=== PATIENT | female | born 1935 | race Caucasian/White ===

== ENCOUNTER → 2016-05-16 | Outpatient (CLI) | payer MEDICARE, OTHER ==
[~2016-05-16] MED LIST: ALBUPOW26 XX; ASPI81CH43 PO; MECL-87 PO
== END | disposition home or self-care (01) ==
LOC: LAB 11:15
PROVIDERS: ATTEND Internal Medicine
DX: R42 Dizziness and giddiness (principal)
CPT/HCPCS: 36415; 82565; 84520

== ENCOUNTER → 2016-08-03 | Outpatient (CLI) | payer MEDICARE, OTHER ==
[2016-08-03 13:23] LABS: Urine Bilirubin Negative (Negative); Urine Blood Negative /uL (Negative); Urine Color Yellow (Yellow); Urine Glucose Normal (Normal); Urine Ketone Negative (Negative); Urine Mucus FEW (None Seen); Urine Nitrite Negative (Negative); Urine RBC <1 /hpf (0 - 4); Urine Squamous Epithelial Cell FEW /hpf (<5); Urine Urobilinogen Normal (Negative)
[2016-08-03 13:39] LABS: Basophils # (auto) 0 uL; Basophils % (auto) 0.8 % (0.0-2.0); Eosinophils # (auto) 0.1 uL; Eosinophils % (auto) 3.7 % (0.0-7.0); Hematocrit 38.3 % (36.0-46.0); Hemoglobin 12.5 g/dL (12.2-16.2); Lymphocytes # (auto) 1.1 uL; Lymphocytes % (auto) 32.4 % (10.0-50.0); Mean Corpuscular Hemoglobin 30.6 pg (28.0-32.0); Mean Corpuscular Hgb Conc. 32.7 g/dL (32.0-36.0); Mean Corpuscular Volume 93.7 fL (80.0-100.0); Mean Platelet Volume 8.9 fL (7.4-10.4); Monocytes # (auto) 0.3 uL; Monocytes % (auto) 8.2 % (0.0-12.0); Neutrophils # (auto) 1.9 uL; Neutrophils % (auto) 54.9 % (37.0-80.0); Platelet Count (auto) 147 10^3/uL (140-450); Red Cell Distribution Width 13.6 % (11.6-16.0); White Blood Cell 3.4 10^3/uL (4.4-10.8)
[2016-08-03 14:06] LABS: Albumin 3.7 g/dL (3.4-5.0); BUN/Creatinine Ratio 25.7; Bilirubin, Total 0.4 mg/dL (0.2-1.0); Calcium 9.6 mg/dL (8.5-10.1)
== END | disposition home or self-care (01) ==
LOC: LAB 12:44
PROVIDERS: ATTEND Internal Medicine
DX: Z00.00 Encounter for general adult medical examination without abnormal findings (principal)
CPT/HCPCS: 36415; 80053; 80061; 81001; 82306; 84439; 84443; 85025

== ENCOUNTER 2016-09-15 18:12 | Emergency (ER) | payer MEDICARE, OTHER ==
[~2016-09-15] VITALS: Ht 160 cm; Wt 55.8 kg
[2016-09-15 18:22] VITALS: BP 169/95
[2016-09-15 19:27] LABS: Basophils # (auto) 0 uL; Basophils % (auto) 0.6 % (0.0-2.0); Eosinophils # (auto) 0.2 uL; Eosinophils % (auto) 3.7 % (0.0-7.0); Hematocrit 40.8 % (36.0-46.0); Hemoglobin 13.4 g/dL (12.2-16.2); Lymphocytes # (auto) 1.6 uL; Lymphocytes % (auto) 33.7 % (10.0-50.0); Mean Corpuscular Hemoglobin 31.4 pg (28.0-32.0); Mean Corpuscular Hgb Conc. 32.9 g/dL (32.0-36.0); Mean Corpuscular Volume 95.3 fL (80.0-100.0); Mean Platelet Volume 8.8 fL (7.4-10.4); Monocytes # (auto) 0.4 uL; Monocytes % (auto) 7.5 % (0.0-12.0); Neutrophils # (auto) 2.6 uL; Neutrophils % (auto) 54.5 % (37.0-80.0); Platelet Count (auto) 179 10^3/uL (140-450); Red Cell Distribution Width 13.5 % (11.6-16.0); White Blood Cell 4.7 10^3/uL (4.4-10.8)
[2016-09-15 19:48] LABS: Albumin 4.1 g/dL (3.4-5.0); Alkaline Phosphatase 69 U/L (45-117); Anion Gap 6 (5-15); Aspartate Aminotransferase 19 U/L (15-37); BUN/Creatinine Ratio 26.4; Bilirubin, Total 0.4 mg/dL (0.2-1.0); Blood Urea Nitrogen 19 mg/dL (7-18); Calcium 9.1 mg/dL (8.5-10.1); Carbon Dioxide 28 mmol/L (21-32); Chloride 102 mmol/L (98-107); GFR African American 100 mL/min; GFR Non-African American 82 mL/min; Glucose 90 mg/dL (74-106); Magnesium 2.4 mg/dL (1.6-2.6); Potassium 3.5 mmol/L (3.5-5.1); Sodium 136 mmol/L (136-145); Total Protein 7.6 g/dL (6.4-8.2)
== END 2016-09-15 19:17 | disposition left against medical advice (07) ==
LOC: ER 18:12
DX: R53.1 Weakness (principal); R42 Dizziness and giddiness; Z53.21 Procedure and treatment not carried out due to patient leaving prior to being seen by health care provider
CPT/HCPCS: 36415; 80053; 83735; 84484; 85025; 93005

== ENCOUNTER 2017-04-17 10:06 | Inpatient (IN) | payer MEDICARE, OTHER ==
[~2017-04-17] VITALS: Ht 157.5 cm; Wt 63.9 kg
[2017-04-17 12:32] LABS: Basophils # (auto) 0 uL; Basophils % (auto) 0.6 % (0.0-2.0); Eosinophils # (auto) 0 uL; Eosinophils % (auto) 0.4 % (0.0-7.0); Hematocrit 42.5 % (36.0-46.0); Hemoglobin 14.1 g/dL (12.2-16.2); Lymphocytes # (auto) 0.4 uL; Lymphocytes % (auto) 9.2 % (10.0-50.0); Mean Corpuscular Hemoglobin 31.6 pg (28.0-32.0); Mean Corpuscular Volume 95.5 fL (80.0-100.0); Monocytes # (auto) 0.2 uL; Monocytes % (auto) 3.9 % (0.0-12.0); Neutrophils # (auto) 3.9 uL; Neutrophils % (auto) 85.9 % (37.0-80.0); Platelet Count (auto) 143 10^3/uL (140-450); Red Blood Cells 4.45 10^6/uL (4.0-5.20); Red Cell Distribution Width 14.2 % (11.8-14.3); White Blood Cell 4.5 10^3/uL (4.4-10.8)
[2017-04-17 12:52] LABS: Albumin 3.8 g/dL (3.4-5.0); BUN/Creatinine Ratio 27.8; Calcium 9.5 mg/dL (8.5-10.1); Potassium 4.5 mmol/L (3.5-5.1)
[2017-04-17 12:56] LABS: Bilirubin, Total 0.5 mg/dL (0.2-1.0); Total Protein 7.5 g/dL (6.4-8.2)
[2017-04-17 14:59] LABS: Urine Bacteria NONE SEEN /hpf (None Seen); Urine Blood 1+ /uL (Negative); Urine Mucus FEW (None Seen); Urine Specific Gravity 1.027 (1.001-1.035); Urine WBC 258 /hpf (0 - 5)
[2017-04-17] MEDS ORDERED: ONDANSETRON HCL 4 MG/2 ML VIAL IV ONE (16:30)
[2017-04-17] MEDS ORDERED: MORPHINE SULFATE 4 MG/ML SYR/VIAL IV ONE (16:30)
[2017-04-17] MEDS ORDERED: CIPROFLOXACIN 400MG/200ML 200 ML IV ONE (16:45)
[2017-04-17] MEDS ORDERED: PANTOPRAZOLE 40 MG/10 ML VIAL IV ONE (16:45)
[2017-04-17] MEDS ORDERED: MORPHINE SULFATE 10 MG/ML INJ 1ML SDV IV ONE (16:45)
[2017-04-17] MEDS ORDERED: PIPERACILLIN-TAZOB 2.25GM 50 ML IV ONE (19:15)
[2017-04-17] MEDS ORDERED: MORPHINE SULFATE 10 MG/ML INJ 1ML SDV IV PRN (19:30)
[2017-04-17] MEDS ORDERED: ONDANSETRON HCL 4 MG/2 ML VIAL IV PRN (19:30)
[2017-04-17] MEDS ORDERED: NITROGLYCERIN 0.4 MG SL TAB SL PRN (19:30)
[2017-04-17] MEDS ORDERED: LORazepam 2MG/ML-1ML VIAL IV PRN (19:30)
[2017-04-17] MEDS ORDERED: D5W/SOD CHL 0.45%/KCL 20MEQ 1,000 ML IV ONE (19:30)
[2017-04-17] MEDS ORDERED: cefTRIAXone 1GM/10ml IVPUSH 10 ML IV ONE (19:45)
[2017-04-17 21:35] VITALS: BP 107/69
[2017-04-17] MEDS: metroNIDAZOLE 500MG/100ML 100 ML IV SCH (22:26)
[2017-04-18 05:25] LABS: Basophils # (auto) 0 uL; Basophils % (auto) 0.1 % (0.0-2.0); Eosinophils # (auto) 0 uL; Hemoglobin 11.9 g/dL (12.2-16.2); Lymphocytes # (auto) 0.6 uL; Lymphocytes % (auto) 8.5 % (10.0-50.0); Mean Corpuscular Hemoglobin 32.2 pg (28.0-32.0); Mean Corpuscular Volume 94.6 fL (80.0-100.0); Monocytes # (auto) 0.4 uL; Monocytes % (auto) 5.9 % (0.0-12.0); Neutrophils # (auto) 6.2 uL; Neutrophils % (auto) 85.5 % (37.0-80.0); Nucleated Red Blood Cells % 0.1 %; Platelet Count (auto) 124 10^3/uL (140-450); Red Cell Distribution Width 14.1 % (11.8-14.3); White Blood Cell 7.3 10^3/uL (4.4-10.8)
[2017-04-18 05:38] VITALS: BP 105/67
[2017-04-18 05:46] LABS: INR 1.11 (0.9-1.15); Prothrombin Time 12.1 sec (9.37-12.3)
[2017-04-18 05:56] LABS: BUN/Creatinine Ratio 30.8; Bilirubin, Total 0.6 mg/dL (0.2-1.0); Calcium 8.5 mg/dL (8.5-10.1); Total Protein 6.3 g/dL (6.4-8.2)
[2017-04-18] MEDS: metroNIDAZOLE 500MG/100ML 100 ML IV SCH ×3 (06:49→21:38)
[2017-04-18 07:58] VITALS: BP 115/69
[2017-04-18 08:40] VITALS: BP 115/69
[2017-04-18] MEDS: cefTRIAXone 1GM/10ml IVPUSH 10 ML IV SCH (08:43)
[2017-04-18] MEDS ORDERED: PANTOPRAZOLE 40 MG/10 ML VIAL IV ONE (10:30)
[2017-04-18] MEDS: D5W/SOD CHL 0.45%/KCL 20MEQ 1,000 ML IV SCH ×2 (11:49→21:39)
[2017-04-18 13:00] VITALS: BP 126/75
[2017-04-18 16:31] VITALS: BP 124/76
[2017-04-18 21:46] VITALS: BP 129/71
[2017-04-19 04:57] VITALS: BP 118/70
[2017-04-19] MEDS: metroNIDAZOLE 500MG/100ML 100 ML IV SCH ×3 (05:31→21:49)
[2017-04-19] MEDS: D5W/SOD CHL 0.45%/KCL 20MEQ 1,000 ML IV SCH ×2 (05:32→10:30)
[2017-04-19 05:51] LABS: Basophils # (auto) 0 uL; Basophils % (auto) 0.2 % (0.0-2.0); Eosinophils # (auto) 0.1 uL; Eosinophils % (auto) 2.2 % (0.0-7.0); Hematocrit 34.8 % (36.0-46.0); Hemoglobin 11.9 g/dL (12.2-16.2); Lymphocytes # (auto) 0.9 uL; Lymphocytes % (auto) 14.1 % (10.0-50.0); Mean Corpuscular Hemoglobin 31.9 pg (28.0-32.0); Mean Corpuscular Hgb Conc. 34.3 g/dL (32.0-36.0); Mean Corpuscular Volume 93.2 fL (80.0-100.0); Monocytes # (auto) 0.3 uL; Monocytes % (auto) 5.3 % (0.0-12.0); Neutrophils # (auto) 4.7 uL; Neutrophils % (auto) 78.2 % (37.0-80.0); Nucleated Red Blood Cells % 0.1 %; Platelet Count (auto) 121 10^3/uL (140-450); Red Blood Cells 3.74 10^6/uL (4.0-5.20)
[2017-04-19 06:00] LABS: Potassium 3.6 mmol/L (3.5-5.1)
[2017-04-19 06:01] LABS: BUN/Creatinine Ratio 16.1; Calcium 8.8 mg/dL (8.5-10.1)
[2017-04-19 08:59] VITALS: BP 121/71
[2017-04-19] MEDS: cefTRIAXone 1GM/10ml IVPUSH 10 ML IV SCH (09:07)
[2017-04-19] MEDS: PANTOPRAZOLE 40 MG/10 ML VIAL IV SCH (09:07)
[2017-04-19] MEDS ORDERED: PPN PER PHARMACY 0 ML IV SCH (10:30)
[2017-04-19 11:52] LABS: Magnesium 1.9 mg/dL (1.6-2.6); Pre Albumin 13.9 mg/dL (20.0-40.0)
[2017-04-19 13:32] VITALS: BP 125/80
[2017-04-19] MEDS ORDERED: SODIUM PHOSP 40 MEQ in D5W 5% 250 ML IV ONE (14:00)
[2017-04-19 16:08] VITALS: BP 125/77
[2017-04-19] MEDS: ACCU-CHEK COMFORT CURVE STRIP VI SCH ×2 (17:55→23:53)
[2017-04-19] MEDS: InsuLIN REG 1unit/0.01ml Soln (100units/ml) SC SCH ×2 (17:56→23:53)
[2017-04-19] MEDS ORDERED: DEXTROSE (50%) 50ML SYRG IV SCH (18:00)
[2017-04-19] MEDS ORDERED: PPN PER PHARMACY IV NR ×10 (20:00)
[2017-04-19 22:00] VITALS: BP 134/93
[2017-04-20 05:16] LABS: Basophils # (auto) 0 uL; Basophils % (auto) 0.3 % (0.0-2.0); Eosinophils # (auto) 0.3 uL; Eosinophils % (auto) 4.3 % (0.0-7.0); Hemoglobin 12.4 g/dL (12.2-16.2); Lymphocytes # (auto) 0.9 uL; Lymphocytes % (auto) 15.3 % (10.0-50.0); Mean Corpuscular Hemoglobin 31.6 pg (28.0-32.0); Mean Corpuscular Hgb Conc. 33.5 g/dL (32.0-36.0); Mean Corpuscular Volume 94.4 fL (80.0-100.0); Monocytes # (auto) 0.4 uL; Monocytes % (auto) 6.1 % (0.0-12.0); Neutrophils # (auto) 4.6 uL; Nucleated Red Blood Cells % 0.1 %; Platelet Count (auto) 141 10^3/uL (140-450); Red Blood Cells 3.92 10^6/uL (4.0-5.20); Red Cell Distribution Width 14.5 % (11.8-14.3); White Blood Cell 6.2 10^3/uL (4.4-10.8)
[2017-04-20 05:34] LABS: Albumin 2.9 g/dL (3.4-5.0); BUN/Creatinine Ratio 21.2; Bilirubin, Total 0.5 mg/dL (0.2-1.0); Calcium 8.6 mg/dL (8.5-10.1); Magnesium 2.1 mg/dL (1.6-2.6); Phosphorus 3.3 mg/dL (2.5-4.90); Potassium 3.6 mmol/L (3.5-5.1); Total Protein 6.4 g/dL (6.4-8.2)
[2017-04-20] MEDS: metroNIDAZOLE 500MG/100ML 100 ML IV SCH ×3 (05:39→21:13)
[2017-04-20 05:40] VITALS: BP 131/73
[2017-04-20] MEDS: ACCU-CHEK COMFORT CURVE STRIP VI SCH ×3 (05:40→17:38)
[2017-04-20] MEDS: InsuLIN REG 1unit/0.01ml Soln (100units/ml) SC SCH ×3 (05:43→17:38)
[2017-04-20] MEDS: D5W/SOD CHL 0.45%/KCL 20MEQ 1,000 ML IV SCH ×2 (06:30→11:42)
[2017-04-20] MEDS ORDERED: ceFAZolin 1GM/50ML 50 ML IV ONE (06:43)
[2017-04-20] MEDS ORDERED: SUCCINYLCHOLINE CHLORIDE 20 MG/ML 10ML VIAL IV ONE (07:14)
[2017-04-20] MEDS ORDERED: LIDOCAINE 1% HCL (LOCAL ANESTH.) INJ 20ML MDV ONE (07:15)
[2017-04-20] MEDS ORDERED: ROCURONIUM 10MG/ML 10ML VIAL IV ONE (07:18)
[2017-04-20] MEDS ORDERED: ETOMIDATE (2MG/ML) 20ML VIAL IV ONE (07:19)
[2017-04-20] MEDS ORDERED: fentaNYL CITRATE 100 MCG/2 ML VL ONE (07:39)
[2017-04-20] MEDS ORDERED: ePHEDrine SULFATE 50 MG/ML AMP ONE (07:45)
[2017-04-20] MEDS ORDERED: SODIUM CHLORIDE LOCK 10 ML ONE (07:45)
[2017-04-20] MEDS ORDERED: NEOSTIGMINE 1 MG/ML INJ (10mg/10ML VIAL) ONE (08:06)
[2017-04-20] MEDS ORDERED: GLYCOPYRROLATE 0.2 MG/ML 1ML VIAL ONE (08:06)
[2017-04-20] MEDS ORDERED: ONDANSETRON HCL 4 MG/2 ML VIAL IV ONE (08:45)
[2017-04-20] MEDS ORDERED: NALOXONE HCL 0.4 MG/ML VIAL IV PRN (08:45)
[2017-04-20] MEDS: HYDROmorphone HCL 2 MG/ML VL IV PRN ×3 (08:48→09:40)
[2017-04-20] MEDS ORDERED: LIDOCAINE HCL 2% TOP JELLY 5ML TOP ONE (08:55)
[2017-04-20] MEDS: cefTRIAXone 1GM/10ml IVPUSH 10 ML IV SCH (09:00)
[2017-04-20] MEDS: PANTOPRAZOLE 40 MG/10 ML VIAL IV SCH (11:38)
[2017-04-20] MEDS ORDERED: PPN PER PHARMACY IV NR ×10 (20:00)
[2017-04-20 22:00] VITALS: BP 109/74
[2017-04-21] MEDS: ACCU-CHEK COMFORT CURVE STRIP VI SCH ×4 (00:14→17:25)
[2017-04-21 05:00] VITALS: BP 98/68
[2017-04-21] MEDS: metroNIDAZOLE 500MG/100ML 100 ML IV SCH ×3 (05:35→21:21)
[2017-04-21] MEDS: InsuLIN REG 1unit/0.01ml Soln (100units/ml) SC SCH ×4 (05:40→17:25)
[2017-04-21 06:18] LABS: Basophils # (auto) 0 uL; Basophils % (auto) 0.2 % (0.0-2.0); Eosinophils # (auto) 0.1 uL; Eosinophils % (auto) 2.1 % (0.0-7.0); Hematocrit 34.7 % (36.0-46.0); Hemoglobin 11.8 g/dL (12.2-16.2); Lymphocytes # (auto) 0.6 uL; Lymphocytes % (auto) 12.5 % (10.0-50.0); Mean Corpuscular Hemoglobin 31.9 pg (28.0-32.0); Mean Corpuscular Volume 93.6 fL (80.0-100.0); Monocytes # (auto) 0.4 uL; Monocytes % (auto) 7.3 % (0.0-12.0); Neutrophils % (auto) 77.9 % (37.0-80.0); Platelet Count (auto) 141 10^3/uL (140-450); Red Blood Cells 3.71 10^6/uL (4.0-5.20); Red Cell Distribution Width 14.2 % (11.8-14.3); White Blood Cell 5.2 10^3/uL (4.4-10.8)
[2017-04-21 06:40] LABS: Albumin 2.5 g/dL (3.4-5.0); BUN/Creatinine Ratio 15.7; Bilirubin, Total 0.4 mg/dL (0.2-1.0); Calcium 7.9 mg/dL (8.5-10.1); Potassium 3.5 mmol/L (3.5-5.1); Total Protein 5.7 g/dL (6.4-8.2)
[2017-04-21] MEDS: MORPHINE SULFATE 10 MG/ML INJ 1ML SDV IV PRN ×2 (08:21→21:20)
[2017-04-21] MEDS ORDERED: SODIUM PHOSPHATES 24 MEQ in SODIUM CHL 0.9% 100 ML IV ONE (08:30)
[2017-04-21] MEDS: cefTRIAXone 1GM/10ml IVPUSH 10 ML IV SCH (09:31)
[2017-04-21] MEDS: PANTOPRAZOLE 40 MG/10 ML VIAL IV SCH (09:31)
[2017-04-21] MEDS: D5W/SOD CHL 0.45%/KCL 20MEQ 1,000 ML IV SCH ×2 (09:32→09:40)
[2017-04-21 10:00] VITALS: BP 102/69
[2017-04-21 13:00] VITALS: BP 108/67
[2017-04-21] MEDS ORDERED: FUROSEMIDE 40 MG/4 ML VIAL IV ONE (14:30)
[2017-04-21] MEDS ORDERED: POTASSIUM CHLORIDE 40 MEQ, LIDOCAINE 1% (LOCAL ANESTH.) 4 ML in SODIUM CHL 0.9% 100 ML IV ONE (14:30)
[2017-04-21 17:31] VITALS: BP 111/70
[2017-04-21] MEDS ORDERED: PPN PER PHARMACY IV NR ×12 (20:00)
[2017-04-21 21:53] VITALS: BP 115/73
[2017-04-22] MEDS: ACCU-CHEK COMFORT CURVE STRIP VI SCH ×5 (01:05→23:52)
[2017-04-22] MEDS: InsuLIN REG 1unit/0.01ml Soln (100units/ml) SC SCH ×5 (01:05→23:52)
[2017-04-22 05:00] VITALS: BP 104/69
[2017-04-22] MEDS: metroNIDAZOLE 500MG/100ML 100 ML IV SCH ×3 (05:58→21:25)
[2017-04-22 09:00] VITALS: BP 99/69
[2017-04-22 09:47] LABS: Basophils # (auto) 0 uL; Basophils % (auto) 0.6 % (0.0-2.0); Eosinophils # (auto) 0.2 uL; Hematocrit 38.3 % (36.0-46.0); Hemoglobin 13.1 g/dL (12.2-16.2); Lymphocytes # (auto) 0.9 uL; Lymphocytes % (auto) 15.6 % (10.0-50.0); Mean Corpuscular Hemoglobin 31.7 pg (28.0-32.0); Mean Corpuscular Hgb Conc. 34.3 g/dL (32.0-36.0); Mean Corpuscular Volume 92.6 fL (80.0-100.0); Monocytes # (auto) 0.6 uL; Monocytes % (auto) 10.7 % (0.0-12.0); Neutrophils # (auto) 4.1 uL; Neutrophils % (auto) 69.1 % (37.0-80.0); Platelet Count (auto) 151 10^3/uL (140-450); Red Blood Cells 4.13 10^6/uL (4.0-5.20); Red Cell Distribution Width 13.8 % (11.8-14.3)
[2017-04-22] MEDS: cefTRIAXone 1GM/10ml IVPUSH 10 ML IV SCH (10:21)
[2017-04-22] MEDS: PANTOPRAZOLE 40 MG/10 ML VIAL IV SCH (10:21)
[2017-04-22 10:43] LABS: Albumin 2.6 g/dL (3.4-5.0); Bilirubin, Total 0.3 mg/dL (0.2-1.0); Calcium 8.5 mg/dL (8.5-10.1); Magnesium 2.3 mg/dL (1.6-2.6); Phosphorus 2.2 mg/dL (2.5-4.90); Potassium 3.8 mmol/L (3.5-5.1); Pre Albumin 13.2 mg/dL (20.0-40.0); Total Protein 6.1 g/dL (6.4-8.2)
[2017-04-22 17:00] VITALS: BP 98/70
[2017-04-22] MEDS ORDERED: PPN PER PHARMACY IV NR ×11 (20:00)
[2017-04-22 22:00] VITALS: BP 97/63
[2017-04-23] MEDS: metroNIDAZOLE 500MG/100ML 100 ML IV SCH ×3 (05:50→21:29)
[2017-04-23] MEDS: ACCU-CHEK COMFORT CURVE STRIP VI SCH ×3 (05:50→18:47)
[2017-04-23] MEDS: InsuLIN REG 1unit/0.01ml Soln (100units/ml) SC SCH ×3 (05:53→18:47)
[2017-04-23 05:56] VITALS: BP 157/96
[2017-04-23 06:16] LABS: Basophils # (auto) 0 uL; Basophils % (auto) 0.5 % (0.0-2.0); Eosinophils # (auto) 0.3 uL; Eosinophils % (auto) 4.6 % (0.0-7.0); Hematocrit 36.2 % (36.0-46.0); Hemoglobin 12.3 g/dL (12.2-16.2); Lymphocytes # (auto) 1.1 uL; Lymphocytes % (auto) 18.7 % (10.0-50.0); Mean Corpuscular Hemoglobin 32.2 pg (28.0-32.0); Mean Corpuscular Volume 94.7 fL (80.0-100.0); Monocytes # (auto) 0.6 uL; Monocytes % (auto) 9.4 % (0.0-12.0); Neutrophils # (auto) 3.9 uL; Neutrophils % (auto) 66.8 % (37.0-80.0); Nucleated Red Blood Cells % 0.1 %; Platelet Count (auto) 145 10^3/uL (140-450); Red Blood Cells 3.83 10^6/uL (4.0-5.20); Red Cell Distribution Width 14.4 % (11.8-14.3); White Blood Cell 5.9 10^3/uL (4.4-10.8)
[2017-04-23 06:29] LABS: Albumin 2.4 g/dL (3.4-5.0); Bilirubin, Total 0.3 mg/dL (0.2-1.0); Calcium 8.5 mg/dL (8.5-10.1); Magnesium 2.3 mg/dL (1.6-2.6); Phosphorus 2.4 mg/dL (2.5-4.90); Potassium 3.7 mmol/L (3.5-5.1); Total Protein 5.9 g/dL (6.4-8.2)
[2017-04-23] MEDS: PANTOPRAZOLE 40 MG/10 ML VIAL IV SCH (10:30)
[2017-04-23] MEDS: cefTRIAXone 1GM/10ml IVPUSH 10 ML IV SCH (10:31)
[2017-04-23 14:13] VITALS: BP 116/70
[2017-04-23 16:41] VITALS: BP 124/76
[2017-04-23] MEDS ORDERED: PPN PER PHARMACY IV NR ×11 (20:00)
[2017-04-23 22:00] VITALS: BP 122/78
[2017-04-24] MEDS: ACCU-CHEK COMFORT CURVE STRIP VI SCH ×4 (00:02→17:49)
[2017-04-24 05:00] VITALS: BP 126/69
[2017-04-24] MEDS: metroNIDAZOLE 500MG/100ML 100 ML IV SCH ×3 (05:23→21:36)
[2017-04-24] MEDS: InsuLIN REG 1unit/0.01ml Soln (100units/ml) SC SCH ×4 (05:30→17:49)
[2017-04-24 06:13] LABS: Albumin 2.5 g/dL (3.4-5.0); BUN/Creatinine Ratio 72.5; Bilirubin, Total 0.5 mg/dL (0.2-1.0); Calcium 8.3 mg/dL (8.5-10.1); Magnesium 2.4 mg/dL (1.6-2.6); Phosphorus 2.4 mg/dL (2.5-4.90); Potassium 3.5 mmol/L (3.5-5.1); Total Protein 5.9 g/dL (6.4-8.2)
[2017-04-24 07:45] VITALS: BP 110/73
[2017-04-24] MEDS: PANTOPRAZOLE 40 MG/10 ML VIAL IV SCH (10:15)
[2017-04-24] MEDS: cefTRIAXone 1GM/10ml IVPUSH 10 ML IV SCH (10:15)
[2017-04-24 14:51] VITALS: BP 114/63
[2017-04-24 18:11] VITALS: BP 101/62
[2017-04-24] MEDS ORDERED: POTASSIUM ACETATE IV NR ×11 (20:00)
[2017-04-24] MEDS ORDERED: SODIUM ACETATE IV NR ×11 (20:00)
[2017-04-24] MEDS ORDERED: FAT EMULSION IV NR ×11 (20:00)
[2017-04-24] MEDS ORDERED: [UNRECOGNIZED DRUG - OTHER] IV NR ×11 (20:00)
[2017-04-24 22:00] VITALS: BP 111/71
[2017-04-25 05:00] VITALS: BP 111/63
[2017-04-25] MEDS: InsuLIN REG 1unit/0.01ml Soln (100units/ml) SC SCH ×4 (05:35→18:00)
[2017-04-25] MEDS: metroNIDAZOLE 500MG/100ML 100 ML IV SCH ×3 (05:35→21:46)
[2017-04-25] MEDS: ACCU-CHEK COMFORT CURVE STRIP VI SCH ×4 (05:36→18:18)
[2017-04-25 05:57] LABS: Basophils # (auto) 0 uL; Basophils % (auto) 0.4 % (0.0-2.0); Eosinophils # (auto) 0.2 uL; Hematocrit 35.7 % (36.0-46.0); Hemoglobin 12.1 g/dL (12.2-16.2); Lymphocytes # (auto) 0.9 uL; Lymphocytes % (auto) 15.6 % (10.0-50.0); Mean Corpuscular Hgb Conc. 33.8 g/dL (32.0-36.0); Mean Corpuscular Volume 94.5 fL (80.0-100.0); Monocytes # (auto) 0.4 uL; Monocytes % (auto) 7.2 % (0.0-12.0); Neutrophils # (auto) 4.5 uL; Neutrophils % (auto) 73.8 % (37.0-80.0); Nucleated Red Blood Cells % 0.1 %; Platelet Count (auto) 150 10^3/uL (140-450); Red Blood Cells 3.77 10^6/uL (4.0-5.20); Red Cell Distribution Width 14.4 % (11.8-14.3)
[2017-04-25 06:16] LABS: Albumin 2.4 g/dL (3.4-5.0); BUN/Creatinine Ratio 58.5; Bilirubin, Total 0.4 mg/dL (0.2-1.0); Calcium 8.2 mg/dL (8.5-10.1); Magnesium 2.2 mg/dL (1.6-2.6); Phosphorus 2.2 mg/dL (2.5-4.90); Potassium 3.6 mmol/L (3.5-5.1); Total Protein 5.7 g/dL (6.4-8.2)
[2017-04-25] MEDS: cefTRIAXone 1GM/10ml IVPUSH 10 ML IV SCH (09:00)
[2017-04-25] MEDS: PANTOPRAZOLE 40 MG/10 ML VIAL IV SCH (10:02)
[2017-04-25] MEDS ORDERED: POTASSIUM PHOSP 22MEQ(15MMOLE) in NS 100 ML IV ONE (10:30)
[2017-04-25] MEDS ORDERED: MORPHINE SULFATE 10 MG/ML INJ 1ML SDV IV PRN ×2 (14:30)
[2017-04-25] MEDS ORDERED: PANTOPRAZOLE 40 MG TAB PO ONE (14:45)
[2017-04-25 17:00] VITALS: BP 97/61
[2017-04-25] MEDS ORDERED: PPN PER PHARMACY IV NR ×11 (20:00)
[2017-04-25 22:00] VITALS: BP 98/67
[2017-04-26] MEDS: metroNIDAZOLE 500MG/100ML 100 ML IV SCH (05:35)
[2017-04-26 05:44] VITALS: BP 84/54
[2017-04-26 06:52] LABS: BUN/Creatinine Ratio 41.8; Potassium 3.9 mmol/L (3.5-5.1)
[2017-04-26 06:53] LABS: Bilirubin, Total 0.4 mg/dL (0.2-1.0); Calcium 8.2 mg/dL (8.5-10.1); Total Protein 5.4 g/dL (6.4-8.2)
[2017-04-26 06:54] LABS: Albumin 2.3 g/dL (3.4-5.0); Pre Albumin 13.3 mg/dL (20.0-40.0)
[2017-04-26 09:00] VITALS: BP 86/56
[2017-04-26] MEDS: PANTOPRAZOLE 40 MG TAB PO SCH (09:25)
[2017-04-26] MEDS: cefTRIAXone 1GM/10ml IVPUSH 10 ML IV SCH (09:26)
[2017-04-26 13:00] VITALS: BP 98/63
[2017-04-26] MEDS: metroNIDAZOLE 500 MG TAB PO SCH ×2 (14:10→21:08)
[2017-04-26 17:00] VITALS: BP 98/64
[2017-04-26 21:25] VITALS: BP 90/54
[2017-04-27 05:20] VITALS: BP 103/55
[2017-04-27] MEDS: metroNIDAZOLE 500 MG TAB PO SCH ×3 (05:44→21:27)
[2017-04-27] MEDS: PRO-STAT 64 30ML PO SCH ×2 (08:00→18:07)
[2017-04-27] MEDS: BOOST PLUS 8 ounce PO SCH ×3 (09:08→18:07)
[2017-04-27 09:21] VITALS: BP 87/51
[2017-04-27] MEDS ORDERED: SODIUM CHLORIDE 0.9% 1,000 ML IV ONE (10:45)
[2017-04-27] MEDS: PANTOPRAZOLE 40 MG TAB PO SCH (10:53)
[2017-04-27] MEDS: SODIUM CHLORIDE 0.9% 1,000 ML IV SCH (12:30)
[2017-04-27 13:00] VITALS: BP 101/59
[2017-04-27] MEDS: cefTRIAXone 1GM/10ml IVPUSH 10 ML IV SCH (16:48)
[2017-04-27 17:23] VITALS: BP 102/54
[2017-04-27 22:50] VITALS: BP 112/65
[2017-04-27 23:13] LABS: Hematocrit 33.2 % (36.0-46.0); Hemoglobin 11.2 g/dL (12.2-16.2)
[2017-04-28 05:40] LABS: Basophils # (auto) 0 uL; Basophils % (auto) 0.6 % (0.0-2.0); Eosinophils # (auto) 0.2 uL; Eosinophils % (auto) 3.3 % (0.0-7.0); Hematocrit 33.4 % (36.0-46.0); Hemoglobin 11.1 g/dL (12.2-16.2); Lymphocytes # (auto) 0.7 uL; Mean Corpuscular Hemoglobin 31.8 pg (28.0-32.0); Mean Corpuscular Hgb Conc. 33.3 g/dL (32.0-36.0); Mean Corpuscular Volume 95.4 fL (80.0-100.0); Monocytes # (auto) 0.4 uL; Neutrophils # (auto) 4.7 uL; Neutrophils % (auto) 77.1 % (37.0-80.0); Platelet Count (auto) 188 10^3/uL (140-450); Red Cell Distribution Width 14.3 % (11.8-14.3)
[2017-04-28 05:44] VITALS: BP 128/71
[2017-04-28 05:56] LABS: Calcium 8.2 mg/dL (8.5-10.1); Potassium 3.5 mmol/L (3.5-5.1)
[2017-04-28 05:58] LABS: BUN/Creatinine Ratio 36.4
[2017-04-28] MEDS: metroNIDAZOLE 500 MG TAB PO SCH ×3 (06:25→22:30)
[2017-04-28] MEDS: SODIUM CHLORIDE 0.9% 1,000 ML IV SCH ×2 (07:30→22:29)
[2017-04-28] MEDS: BOOST PLUS 8 ounce PO SCH ×3 (08:00→18:00)
[2017-04-28] MEDS: PRO-STAT 64 30ML PO SCH ×2 (08:00→18:00)
[2017-04-28 09:08] VITALS: BP 100/62
[2017-04-28] MEDS: PANTOPRAZOLE 40 MG TAB PO SCH (09:33)
[2017-04-28] MEDS: cefTRIAXone 1GM/10ml IVPUSH 10 ML IV SCH (09:33)
[2017-04-28 13:00] VITALS: BP 101/58
[2017-04-28 17:00] VITALS: BP 102/62
[2017-04-28 22:00] VITALS: BP 101/66
[2017-04-28] MEDS: METOPROLOL TARTRATE 25 MG TAB PO SCH (22:30)
[2017-04-29 05:00] VITALS: BP 124/74
[2017-04-29 05:32] LABS: Basophils # (auto) 0 uL; Basophils % (auto) 0.7 % (0.0-2.0); Eosinophils # (auto) 0.2 uL; Eosinophils % (auto) 3.5 % (0.0-7.0); Hematocrit 33.1 % (36.0-46.0); Hemoglobin 11.1 g/dL (12.2-16.2); Lymphocytes % (auto) 17.3 % (10.0-50.0); Mean Corpuscular Hemoglobin 32.5 pg (28.0-32.0); Mean Corpuscular Hgb Conc. 33.7 g/dL (32.0-36.0); Mean Corpuscular Volume 96.3 fL (80.0-100.0); Monocytes # (auto) 0.5 uL; Monocytes % (auto) 8.2 % (0.0-12.0); Neutrophils % (auto) 70.3 % (37.0-80.0); Nucleated Red Blood Cells % 0.4 %; Platelet Count (auto) 199 10^3/uL (140-450); Red Blood Cells 3.43 10^6/uL (4.0-5.20); Red Cell Distribution Width 14.7 % (11.8-14.3); White Blood Cell 5.8 10^3/uL (4.4-10.8)
[2017-04-29] MEDS: metroNIDAZOLE 500 MG TAB PO SCH ×3 (05:37→21:44)
[2017-04-29 05:49] LABS: Calcium 7.9 mg/dL (8.5-10.1); Potassium 3.7 mmol/L (3.5-5.1)
[2017-04-29] MEDS: BOOST PLUS 8 ounce PO SCH ×3 (08:12→18:00)
[2017-04-29] MEDS: PRO-STAT 64 30ML PO SCH ×2 (08:12→18:00)
[2017-04-29] MEDS: cefTRIAXone 1GM/10ml IVPUSH 10 ML IV SCH (08:29)
[2017-04-29 09:00] VITALS: BP 114/74
[2017-04-29] MEDS: METOPROLOL TARTRATE 25 MG TAB PO SCH ×2 (09:43→21:44)
[2017-04-29] MEDS: PANTOPRAZOLE 40 MG TAB PO SCH (10:33)
[2017-04-29 13:00] VITALS: BP 105/73
[2017-04-29] MEDS: SODIUM CHLORIDE 0.9% 1,000 ML IV SCH (14:30)
[2017-04-29 16:53] VITALS: BP 121/76
[2017-04-29 23:06] VITALS: BP 112/64
== END 2017-04-29 23:09 | DRG 329 ==
LOC: ER 10:10 → OVERFLOW 10:11 → WEST WING 21:33 → OVERFLOW 21:33 → CENTRAL 21:35 → TELE-CENTR 04-18 05:36 → TELE-WESTW 04-20 17:00 → WEST WING 04-24 18:23 → TELE-WESTW 04-28 20:42
PROVIDERS: ADMIT Internal Medicine; ATTEND Family Medicine
PROC: 0D9670Z Drainage of Stomach with Drainage Device, Via Natural or Artificial Opening (ICD-10-PCS; principal; 2017-04-18)
PROC: 0DU907Z Supplement Duodenum with Autologous Tissue Substitute, Open Approach (ICD-10-PCS; 2017-04-20)
DX: K25.5 Chronic or unspecified gastric ulcer with perforation (principal); I50.33 Acute on chronic diastolic (congestive) heart failure; K63.1 Perforation of intestine (nontraumatic); I48.0 Paroxysmal atrial fibrillation; I47.1 Supraventricular tachycardia; J44.9 Chronic obstructive pulmonary disease, unspecified; K66.8 Other specified disorders of peritoneum; N39.0 Urinary tract infection, site not specified; I13.0 Hypertensive heart and chronic kidney disease with heart failure and stage 1 through stage 4 chronic kidney disease, or unspecified chronic kidney disease; F03.90 Unspecified dementia, unspecified severity, without behavioral disturbance, psychotic disturbance, mood disturbance, and anxiety; F41.9 Anxiety disorder, unspecified; J98.8 Other specified respiratory disorders; E78.5 Hyperlipidemia, unspecified; I67.9 Cerebrovascular disease, unspecified; N18.2 Chronic kidney disease, stage 2 (mild); F32.9 Major depressive disorder, single episode, unspecified; Z79.82 Long term (current) use of aspirin; Z79.899 Other long term (current) drug therapy; Z90.49 Acquired absence of other specified parts of digestive tract
CPT/HCPCS: 36415; 51702; 71045; 74018; 74176; 80048; 80053; 81001; 82040; 82150; 82962; 83690; 83735; 84100; 84478; 84484; 85014; 85018; 85025; 85610; 86677; 86850; 86900; 86901; 87040; 93005; 93306; 93971; 96365; 96375; 97110; 97116; 97163; 97530; C9113; J0330; J0690; J1815; J2001; J2405; J2543; J3490; J7060; J7131

== ENCOUNTER 2017-08-30 13:26 | Emergency (ER) | payer MEDICARE ==
[~2017-08-30] VITALS: Ht 160 cm; Wt 54.4 kg
[2017-08-30 16:00] VITALS: BP 124/82
[2017-08-30] MEDS ORDERED: KETOROLAC TROMETH 30 MG/ML 1ML VIAL IM ONE (16:00)
[2017-08-30] MEDS ORDERED: METHOCARBAMOL 500 MG TAB PO ONE (16:00)
== END 2017-08-30 16:26 | disposition home or self-care (01) ==
LOC: ER 13:26
DX: M25.551 Pain in right hip (principal); M54.30 Sciatica, unspecified side; J44.9 Chronic obstructive pulmonary disease, unspecified
CPT/HCPCS: 73502; 96372; 99284; J1885

== ENCOUNTER 2017-12-08 05:12 | Inpatient (IN) | payer MEDICARE ==
[~2017-12-08] VITALS: Ht 157.5 cm; Wt 67.5 kg
[2017-12-08 06:10] LABS: Basophils # (auto) 0 uL; Basophils % (auto) 0.4 % (0.0-2.0); Eosinophils # (auto) 0 uL; Eosinophils % (auto) 0.3 % (0.0-7.0); Hematocrit 34.5 % (36.0-46.0); Hemoglobin 11.4 g/dL (12.2-16.2); Lymphocytes # (auto) 0.8 uL; Lymphocytes % (auto) 15.2 % (10.0-50.0); Mean Corpuscular Hemoglobin 27.8 pg (28.0-32.0); Mean Corpuscular Hgb Conc. 33.1 g/dL (32.0-36.0); Mean Corpuscular Volume 83.9 fL (80.0-100.0); Monocytes # (auto) 0.7 uL; Monocytes % (auto) 13.6 % (0.0-12.0); Neutrophils # (auto) 3.8 uL; Neutrophils % (auto) 70.5 % (37.0-80.0); Platelet Count (auto) 157 10^3/uL (140-450); Red Blood Cells 4.11 10^6/uL (4.0-5.20); White Blood Cell 5.3 10^3/uL (4.4-10.8)
[2017-12-08 06:31] LABS: Urine Bacteria MANY /hpf (None Seen); Urine Blood 1+ /uL (Negative); Urine Mucus FEW (None Seen); Urine Specific Gravity 1.017 (1.001-1.035); Urine WBC 3631 /hpf (0 - 5); Urine WBC Clumps PRESENT /hpf (None Seen)
[2017-12-08 06:51] LABS: Albumin 3.1 g/dL (3.4-5.0); BUN/Creatinine Ratio 24.7; Bilirubin, Total 0.8 mg/dL (0.2-1.0); Calcium 8.4 mg/dL (8.5-10.1); Magnesium 2.4 mg/dL (1.6-2.6); Potassium 3.2 mmol/L (3.5-5.1); Total Protein 7.2 g/dL (6.4-8.2)
[2017-12-08] MEDS ORDERED: POTASSIUM EFFERVESENT TAB 25 MEQ PO ONE (07:45)
[2017-12-08] MEDS ORDERED: cefTRIAXone 1GM/10ml IVPUSH 10 ML IV ONE (07:45)
[2017-12-08] MEDS ORDERED: TEMAZEPAM 15 MG CAP PO PRN (09:00)
[2017-12-08] MEDS ORDERED: LORazepam 0.5 MG TAB PO PRN (09:00)
[2017-12-08] MEDS ORDERED: PROMETHAZINE HCL 25 MG/ML 1ML IV PRN (09:00)
[2017-12-08] MEDS ORDERED: MORPHINE SULF INJ 2 MG/ML SYRINGE 1ML IV PRN ×2 (09:00)
[2017-12-08] MEDS ORDERED: NITROGLYCERIN 0.4 MG SL TAB SL PRN (09:00)
[2017-12-08] MEDS ORDERED: HYDROcodone-ACET 5/325MG TAB PO PRN (09:00)
[2017-12-08] MEDS ORDERED: ACETAMINOPHEN 500 MG TAB PO PRN (09:00)
[2017-12-08] MEDS: SODIUM CHLORIDE 0.9% 1,000 ML IV SCH ×2 (09:03→21:41)
[2017-12-08] MEDS ORDERED: PRAV20TA3 PO (09:46)
[2017-12-08] MEDS ORDERED: ALPR0.25 PO (09:46)
[2017-12-08] MEDS ORDERED: PANT40T PO (09:46)
[2017-12-08] MEDS ORDERED: MEM5T PO (09:46)
[2017-12-08] MEDS: ALBUTEROL SULF 2.5 MG/0.5ML(0.5%) NEB SOLN NEB PRN ×2 (09:58→20:15)
[2017-12-08] MEDS ORDERED: FAMOTIDINE 20 MG TAB PO SCH (10:00)
[2017-12-08] MEDS ORDERED: POTASSIUM CHL 20 Meq TABLET PO ONE (10:45)
[2017-12-08] MEDS ORDERED: PATIENTS OWN MEDICATION (Alprazolam (Xanax) 1 TAB) PO PRN (10:45)
[2017-12-08] MEDS: MEMANTINE HCL 5 MG TAB PO SCH ×2 (12:27→21:40)
[2017-12-08] MEDS: PANTOPRAZOLE 40 MG TAB PO SCH (12:27)
[2017-12-08] MEDS: ENOXAPARIN SOD 40 MG/0.4 ML SYRINGE SC SCH (12:28)
[2017-12-08 12:46] VITALS: BP 132/69
[2017-12-08 13:00] VITALS: BP 132/69
[2017-12-08 14:20] VITALS: BP 132/69
[2017-12-08 17:00] VITALS: BP 134/56
[2017-12-08] MEDS: ALPRAZolam 0.25 MG TAB PO PRN (21:40)
[2017-12-08] MEDS: PRAVASTATIN SODIUM 20 MG TAB PO SCH (21:40)
[2017-12-08 22:00] VITALS: BP 148/77
[2017-12-09 05:00] VITALS: BP 118/75
[2017-12-09 09:00] VITALS: BP_SYST 93; BP_SYST 98; BP_DIAS 51; BP_DIAS 67
[2017-12-09] MEDS: PANTOPRAZOLE 40 MG TAB PO SCH (09:19)
[2017-12-09] MEDS: cefTRIAXone 1GM/10ml IVPUSH 10 ML IV SCH (09:19)
[2017-12-09] MEDS: ENOXAPARIN SOD 40 MG/0.4 ML SYRINGE SC SCH (09:19)
[2017-12-09] MEDS: MEMANTINE HCL 5 MG TAB PO SCH ×2 (09:19→21:15)
[2017-12-09 13:00] VITALS: BP 121/77
[2017-12-09 17:00] VITALS: BP 120/75
[2017-12-09] MEDS: SODIUM CHLORIDE 0.9% 1,000 ML IV SCH (17:08)
[2017-12-09] MEDS: PRAVASTATIN SODIUM 20 MG TAB PO SCH (21:15)
[2017-12-09] MEDS: ALPRAZolam 0.25 MG TAB PO PRN (21:15)
[2017-12-09 22:00] VITALS: BP 132/76
[2017-12-10] MEDS: SODIUM CHLORIDE 0.9% 1,000 ML IV SCH ×2 (02:05→14:15)
[2017-12-10 05:00] VITALS: BP 137/103
[2017-12-10] MEDS: cefTRIAXone 1GM/10ml IVPUSH 10 ML IV SCH (09:00)
[2017-12-10 09:17] VITALS: BP 125/83
[2017-12-10] MEDS: MEMANTINE HCL 5 MG TAB PO SCH ×2 (10:00→23:36)
[2017-12-10] MEDS: ENOXAPARIN SOD 40 MG/0.4 ML SYRINGE SC SCH (10:00)
[2017-12-10] MEDS: PANTOPRAZOLE 40 MG TAB PO SCH (10:00)
[2017-12-10 13:00] VITALS: BP_SYST 102; BP_SYST 111; BP_DIAS 62; BP_DIAS 70
[2017-12-10] MEDS ORDERED: POTASSIUM CHL 20 Meq TABLET PO ONE (13:30)
[2017-12-10 17:00] VITALS: BP 118/69
[2017-12-10 18:53] LABS: Basophils # (auto) 0 uL; Basophils % (auto) 0.5 % (0.0-2.0); Eosinophils # (auto) 0.3 uL; Eosinophils % (auto) 7.1 % (0.0-7.0); Hematocrit 32.2 % (36.0-46.0); Hemoglobin 10.6 g/dL (12.2-16.2); Lymphocytes # (auto) 0.9 uL; Lymphocytes % (auto) 21.5 % (10.0-50.0); Mean Corpuscular Hemoglobin 27.6 pg (28.0-32.0); Mean Corpuscular Volume 83.7 fL (80.0-100.0); Monocytes # (auto) 0.4 uL; Monocytes % (auto) 9.2 % (0.0-12.0); Neutrophils # (auto) 2.6 uL; Neutrophils % (auto) 61.7 % (37.0-80.0); Nucleated Red Blood Cells % 0.1 %; Platelet Count (auto) 173 10^3/uL (140-450); Red Blood Cells 3.85 10^6/uL (4.0-5.20); Red Cell Distribution Width 16.4 % (11.8-14.3); White Blood Cell 4.1 10^3/uL (4.4-10.8)
[2017-12-10 19:05] LABS: BUN/Creatinine Ratio 16.9; Calcium 8.4 mg/dL (8.5-10.1); Potassium 3.2 mmol/L (3.5-5.1)
[2017-12-10 22:01] VITALS: BP 160/88
[2017-12-10] MEDS: PRAVASTATIN SODIUM 20 MG TAB PO SCH (23:39)
[2017-12-10] MEDS: ALPRAZolam 0.25 MG TAB PO PRN (23:40)
[2017-12-11] MEDS: SODIUM CHLORIDE 0.9% 1,000 ML IV SCH (03:06)
[2017-12-11 04:48] VITALS: BP 146/69
[2017-12-11 08:06] VITALS: BP 125/79
[2017-12-11 08:58] LABS: INR 1.01 (0.9-1.15); Partial Thromboplastin Time 22.2 sec (23.78-33.04); Prothrombin Time 10.8 sec (9.27-12.13)
[2017-12-11] MEDS: ENOXAPARIN SOD 40 MG/0.4 ML SYRINGE SC SCH (12:04)
[2017-12-11] MEDS: cefTRIAXone 1GM/10ml IVPUSH 10 ML IV SCH (12:04)
[2017-12-11] MEDS: MEMANTINE HCL 5 MG TAB PO SCH (12:04)
[2017-12-11] MEDS: PANTOPRAZOLE 40 MG TAB PO SCH (12:04)
[2017-12-11 13:30] VITALS: BP 122/93
[2017-12-11 13:53] VITALS: BP 122/93
== END 2017-12-11 13:50 | disposition home or self-care (01) | DRG 689 ==
LOC: EDUNIT# 05:12 → EDBD 05:12 → ER 05:16 → OVERFLOW 05:17 → WEST WING 10:40
PROVIDERS: ADMIT Internal Medicine; ATTEND Family Medicine
DX: N39.0 Urinary tract infection, site not specified (principal); G93.41 Metabolic encephalopathy; K57.30 Diverticulosis of large intestine without perforation or abscess without bleeding; F03.90 Unspecified dementia, unspecified severity, without behavioral disturbance, psychotic disturbance, mood disturbance, and anxiety; J44.9 Chronic obstructive pulmonary disease, unspecified; F32.9 Major depressive disorder, single episode, unspecified; I67.2 Cerebral atherosclerosis; I51.7 Cardiomegaly; B96.20 Unspecified Escherichia coli [E. coli] as the cause of diseases classified elsewhere; Z90.49 Acquired absence of other specified parts of digestive tract; Z79.899 Other long term (current) drug therapy; Z79.82 Long term (current) use of aspirin
CPT/HCPCS: 36415; 70450; 71045; 74176; 80048; 80053; 81001; 83605; 83735; 83880; 85025; 85610; 85730; 87040; 87086; 87088; 87186; 93005; 94640; 96374; 97163; J0696